=== PATIENT | male | born 1985 | race African-American/Black ===

== ENCOUNTER 2023-06-25 08:30 | Outpatient (CLI) | payer OTHER ==
--- NOTE | 2023-06-25 10:10 | XRAY Report ---
PROCEDURE: Foot 3+V RT (Weight Bearing) INDICATIONS: PAIN IN RIGHT FOOT TECHNIQUE: 3 views of the right foot, weightbearing COMPARISON: None. FINDINGS: No acute fracture or traumatic subluxation. Normal alignment on nonweightbearing view. Mild first MTP joint space narrowing. No suspicious osseous lesions. No soft tissue swelling or radiopaque foreign body. IMPRESSION: 1.No acute fracture or traumatic subluxation. 2.Mild first MTP joint space narrowing. Reviewed by: Gina Griggs MD on 06/25/2023 10:08 AM [facility] Approved by: Gina Griggs MD on 06/25/2023 10:08 AM [facility] Station ID: [id number]
== END 2023-06-25 08:45 | disposition home or self-care (01) ==
LOC: DI.N 08:30
PROVIDERS: ATTEND Physician Assistant
DX: M19.071 Primary osteoarthritis, right ankle and foot (principal)

== ENCOUNTER 2023-08-07 10:00 | Outpatient (CLI) | payer OTHER ==
--- NOTE | 2023-08-07 16:02 | XRAY Report ---
PROCEDURE: Cervical Spine w/Flex/Ext 6+V INDICATIONS: NECK PAIN TECHNIQUE: 8 views of the cervical spine were acquired. COMPARISON: None. FINDINGS: Bones: No fractures or dislocations to the T1 level. No suspicious bony lesions. There is normal r johanny of motion between flexion and extension, with preserved normal bony alignment. Oblique images de monstrate no bony foraminal narrowing. Soft tissues: Prevertebral soft tissues are normal in thickness. IMPRESSION: Unremarkable cervical spine plain films. No significant spondylitic change. Normal range of motion without subluxation. Widely patent bony foramina. Reviewed by: Khai Bell MD on 08/07/2023 4:01 PM PDT Approved by: Khai Bell MD on 08/07/2023 4:01 PM PDT Station ID: [id number]
== END 2023-08-07 10:15 | disposition home or self-care (01) ==
LOC: DI.N 10:00
PROVIDERS: ATTEND Physician Assistant
DX: M54.2 Cervicalgia (principal)

== ENCOUNTER 2024-01-26 08:19 | Outpatient (CLI) | payer OTHER ==
--- NOTE | 2024-01-26 09:19 | Sleep Patient Instructions ---
Sleep Center Visit Summary - Patient Visit Information Reason for Visit: Initial Consultation - Patient Instructions Additional Instructions: You will continue with CPAP therapy with pressure changed to 12-20 cmH2O. Please let us know if the pressure change is uncomfortable and we can make further adjustments of the pressure. A supply prescription with transfer of care to new DME supplier will be sent. We encourage you to continue to try to lose weight. Please follow up with the sleep care office in one to two months. - Clinic Information Contact: [facility] [address] [place] [address] [email or web address] T: [phone]
--- NOTE | 2024-01-26 09:27 | SLEEP CARE CONSULTATION ---
Information from patient questionnaire entered by Kailey Cardona. I have reviewed and concur with the information entered by Kailey Cardona. This document represents the service I personally performed and the decisions made by me, Estefani Littlejohn ARNP. History of Present Illness Service Date and Time: 01/26/2024 0819 Reason for Visit: New patient, Previously diagnosed sleep apnea, sleep apnea on CPAP therapy Snores at night: Yes Observed to quit breathing while asleep: Yes Sleeps alone due to snoring: Yes Number of times waking at night: W/O CPAP VERY FREQUENTLY Reasons for waking at night: reports: Choking, Snoring, Gasping for air, Bathroom Toss, Turn, or Twitch while sleeping: Yes Recalls having dreams: Yes Usually gets out of bed at: 0530 Feels refreshed in the morning: No (W/O CPAP) Morning headache: No Sleepy or fatigued during the day: Yes Ever fallen asleep while driving: No Takes day naps: No Prior sleep studies: Yes Year and Where: [facility] 07/2022 split night, [place], [place] Additional HPI information: ROSALVA DECKER was previously diagnosed to have very severe, AHI 87.1, obstructive sleep apnea-hypopnea syndrome as seen in 07/25/2022 split-night sleep study through [facility] and comes in today to establish care for CPAP therapy. - Parasomnia Symptoms Ever been unable to move upon waking from sleep: Yes Walks in sleep: No Talks in sleep: Yes Ever acted out dreams in sleep: No Ever felt weak in the knees when startled or emotional: Yes Bothered by creepy, crawly, restless sensations in legs: No Problems with memory or concentration: No CPAP Compliance Data - Data Reviewed with Patient Average duration of nightly device use: 6 hours 26 mins Compliance rate %: 96 (90/90 days used) Current pressure setting (cmH2O): 20 Average residual AHI: 7 (unknown 6) Central apnea: 0.3 Obstructive apnea: 0.2 Hypopnea: 0.5 Average large leak: 15.3 L/min Compliance data discussion: He has an Airsense 11 that was set up in 11/05/2022. He is getting supplies from [facility] in [place]. He is using a full face mask, Etta full. He does keep a back up mask. He last changed the cushion about a month ago. Subjective Patient concerns: reports: mask leak noise (when mask dislodged when on side), other (jerking awake with heart palpitaion when falling to sleep). denies: aerophagia, mask discomfort, air blowing in eyes, condensation in mask/hose, nasal congestion, dry mouth, nose, throat, epistaxis Observed to snore while using device: No Current pressure setting perceived as: comfortable On therapy, patient: reports: sleeping better, awakening more refreshed, being more awake and alert during the day, more rested overall. 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 Patient is Single and lives in . Have you smoked in the past 12 months: Yes Cigarettes per day (20/pack): 10 Years of smokin Smoking Pack Years: 6.5 Alcohol use: No Caffeine use: Yes Caffeine amount and frequency: 16-20OZ EVERYDAY Family History Family history of sleep disordered breathing: Yes Family Hx Sleep Apnea: Father: Snoring, Sleep apnea - Treated, Sibling: Snoring, Sleep apnea - Untreated Allergies and Home Medications Known drug allergies: No Drug allergies reviewed: Yes Home medication list reviewed: Yes (as listed) Allergy and home medication list: Allergies No Known Drug Allergies Allergy (Verified 01/26/24 08:26) Home Medications Medication Instructions Recorded Confirmed Last Taken Type Ascorbic Acid/Collagen Hydr See Rx Instructions .ROUTE .COMPLEX 01/26/24 01/26/24 Unknown History [Collagen Skin Renewal Tab] Atorvastatin [Lipitor] See Rx Instructions .ROUTE .COMPLEX 01/26/24 01/26/24 Unknown History Carboxymethylcellulose 1% Opht See Rx Instructions .ROUTE .COMPLEX 01/26/24 01/26/24 Unknown History [Refresh 1% Ophth Drops] Losartan [Cozaar] See Rx Instructions .ROUTE .COMPLEX 01/26/24 01/26/24 Unknown History Melatonin See Rx Instructions .ROUTE .COMPLEX 01/26/24 01/26/24 Unknown History Multivitamin See Rx Instructions .ROUTE .COMPLEX 01/26/24 01/26/24 Unknown History Naltrexone HCl [Lotrexone] See Rx Instructions .ROUTE .COMPLEX 01/26/24 01/26/24 Unknown History Naproxen See Rx Instructions .ROUTE .COMPLEX 01/26/24 01/26/24 Unknown History Testosterone Supplements See Rx Instructions .ROUTE .COMPLEX 01/26/24 01/26/24 Unknown History buPROPion [Wellbutrin Sr] See Rx Instructions .ROUTE .COMPLEX 01/26/24 01/26/24 Unknown History hydroCHLOROthiazide See Rx Instructions .ROUTE .COMPLEX 01/26/24 01/26/24 Unknown History [Hydrochlorothiazide] Review of Systems Weight gain over past 5 years: 100 Weight loss over past 5 years: 80 Cardiovascular: reports: high blood pressure Gastrointestinal: denies: heartburn Neurological: denies: headaches Psychiatric: reports: anxiety, depression Ear/Nose/Throat: denies: tonsillectomy (adenoids removed) Physical Exam Vital signs obtained and entered by: KAILEY Eaton MA Blood Pressure: 106/76 (LEFT ARM) Cuff size: long Heart Rate: 65 O2 Saturation: 98 Height: 5 ft 7.5 in Weight: 241 lb 6.4 oz Body Mass Index: 37.2 BMI Classification: Obese Neck circumference: 17.5 Heart: regular rate and rhythm Lungs: clear bilaterally Impression and Plan 1. Obstructive Sleep Apnea-Hypopnea Syndrome, very severe, with good treatment c ompliance and fair apnea control with elevated residual AHI. His CI is 0.3, OI 0.2, HI 0.5 and unknown at 6. He has average large leaks are at 77 L/min at 95%. On CPAP therapy, the patient has better sleep quality and is more rested overall. He has significant improvement of his sleep apnea and is comfortable with CPAP therapy. He says that he is falling asleep just about every night he has a jerk awakening because he feels of "weird" sensation of his heart. He thinks that the palpitation. He has been evaluated with a field service poultry technician that he wore at home, but they did not catch any arrhythmias. He does have very severe sleep apnea, up to 87 events per hour on his last study done in 2022. His average residual AHI is elevated but his average large leak is also very high. I am going to adjust his pressure back to optimal pressure found as seen in last titration study in 2022. The patients pressure will be changed to autoCPAP 12-20 cmH20 for elevation of residual AHI. Patient advised to contact me if pressure change is uncomfortable so that it can be adjusted. Goals for apnea control discussed. Patient's apnea severity and rationale for treatment to reduce apnea, improve sleep quality and reduce cardiovascular and cerebrovascular events was reviewed. I also reviewed the benefit of consistent device use of CPAP for hypertension, depression/anxiety. 2. Obesity, unspecified. Currently patients BMI is 37.2. He is working on changes in diet and has stopped drinking alcohol. He is also increasing his activity/exercise to try to lose weight. Obesity increases the risk of apnea, CPAP pressure requirements and overall health risks especially cardiovascular and diabetes. Thus patient is advised to continue to try to lose weight. * Transfer DME to local [facility] * Change auto CPAP pressure to 12-20 cmH2O * Update supply prescription * Notify me if snoring with mask or feeling that the pressure is too much or too little * Attempt to lose weight * Call this office if any problems using CPAP * Return for follow up in 1-2 months, or sooner if concerns arise Adjust device pressure to (cmH2O): 12-20 Counseling Topics: Weight loss health impact Prescriptions: Device supplies Follow up with Sleep Care in: 1-2 months Visit Type: In Office Time Spent with Patient (minutes): 44 Provider Statement: I spent 100% of the Face to Face Visit with the patient with greater than 50% spent counseling the patient and coordination of care.
[2024-01-26 09:49] VITALS: BP 106/76; O2SAT 98
== END 2024-01-26 08:20 | disposition home or self-care (01) ==
LOC: SC 08:19
PROVIDERS: ATTEND Nurse Practitioner Family
DX: G47.33 Obstructive sleep apnea (adult) (pediatric) (principal); E66.9 Obesity, unspecified; Z68.37 Body mass index [BMI] 37.0-37.9, adult
CPT/HCPCS: 99203; 99212